=== PATIENT | female | born 1960 | race Caucasian/White ===

== ENCOUNTER 2016-05-27 09:58 | Inpatient (IN) | payer MEDICARE, MEDICAID ==
[~2016-05-27] VITALS: Ht 144.8 cm; Wt 60.0 kg
[~2016-05-27 09:58] MED LIST: ASPI325T4 PO; CALC-141 PO; CHOL20003 PO; ESOM40CA PO; EZET10TA3 PO; GABA100C8 PO; HYDR-3240 PO; LEVO100T5 PO; LISI-167 PO; LORA10TA62 PO; LURA20TA PO; LURA60TA PO; MECL-85 PO; MELO-184 PO; ONDA4TAB7 PO; OXCA300T3 PO; PIOG15TA4 PO; PRAV40TA2 PO; TRAZ150T68 PO; VITA1TAB19 PO
[2016-05-27] MEDS ORDERED: CYAN100074 PO (10:37)
[2016-05-27] MEDS ORDERED: ONDANSETRON ODT 4 MG ONE (11:26)
[2016-05-27] MEDS ORDERED: ONDANSETRON ODT 4 MG PO ONE (11:30)
[2016-05-27] MEDS ORDERED: DIAZEPAM 5 MG/ML, 2ML ONE (11:49)
[2016-05-27] MEDS ORDERED: MECLIZINE CHEWABLE 25 MG TAB ONE (11:50)
[2016-05-27] MEDS ORDERED: ONDANSETRON 2MG/ML, 2ML ONE (11:50)
[2016-05-27] MEDS ORDERED: SODIUM CHLORIDE 0.9% 1,000ML IVBOLUS ONE (12:00)
[2016-05-27] MEDS ORDERED: SODIUM CHLORIDE FLUSH 10ML SYR IVF ONE (12:00)
[2016-05-27] MEDS ORDERED: DIAZEPAM 5 MG/ML, 2ML IV ONE (12:00)
[2016-05-27] MEDS ORDERED: ONDANSETRON 2MG/ML, 2ML IVPush ONE (12:00)
[2016-05-27] MEDS ORDERED: MECLIZINE CHEWABLE 25 MG TAB PO ONE (12:00)
[2016-05-27 12:07] LABS: HEMOGLOBIN 14.1 g/dL (11.7-16.4)
[2016-05-27 12:21] LABS: BLOOD UREA NITROGEN 7 mg/dL (7-18)
[2016-05-27 12:24] LABS: ASPARTATE AMINO TRANSFERASE 22 U/L (15-37)
[2016-05-27] MEDS ORDERED: SODIUM CHLORIDE 0.9%, 500ML IVBOLUS ONE (13:00)
[2016-05-27] MEDS ORDERED: POLYETHYLENE GLYCOL 17 GM PACKET PO PRN (14:00)
[2016-05-27] MEDS ORDERED: ENALAPRILAT 1.25 MG/ML, 2ML IVPush PRN (14:00)
[2016-05-27] MEDS ORDERED: BISACODYL 10 MG SUPP PR PRN (14:00)
[2016-05-27] MEDS ORDERED: ACETAMINOPHEN 325 MG TABLET PO PRN (14:00)
[2016-05-27] MEDS ORDERED: DOCUSATE 100 MG CAPSULE PO PRN (14:00)
[2016-05-27] MEDS ORDERED: MORPHINE SULFATE 4 MG/ML, 1ML IVPush PRN (14:00)
[2016-05-27] MEDS ORDERED: MECLIZINE CHEWABLE 25 MG TAB PO PRN (14:30)
[2016-05-27] MEDS ORDERED: DIAZEPAM 5 MG/ML, 2ML IV PRN (14:30)
[2016-05-27] MEDS: INSULIN REGULAR 100 UNITS/ML, 3ML VIAL SQ-INSULIN SCH ×2 (16:00→21:00)
[2016-05-27 16:15] VITALS: BP 182/84
[2016-05-27] MEDS: LORATADINE 10 MG TABLET PO SCH (16:30)
[2016-05-27] MEDS ORDERED: ENOXAPARIN 40 MG/0.4 ML SQ SCH (17:00)
[2016-05-27] MEDS: HYDROcodone/APAP 5/325 TABLET PO PRN ×2 (17:31→22:47)
[2016-05-27 17:35] VITALS: BP 171/90
[2016-05-27] MEDS: ONDANSETRON 2MG/ML, 2ML IVP PRN (18:34)
[2016-05-27 19:28] VITALS: BP 159/92
[2016-05-27] MEDS: SODIUM CHLORIDE FLUSH 10ML SYR IVF SCH (21:00)
[2016-05-27] MEDS: GABAPENTIN 300 MG CAPSULE PO SCH (21:57)
[2016-05-28 02:53] VITALS: BP 147/90
[2016-05-28 05:28] LABS: HEMOGLOBIN 11.9 g/dL (11.7-16.4)
[2016-05-28] MEDS: HYDROcodone/APAP 5/325 TABLET PO PRN (05:38)
[2016-05-28 05:43] LABS: BLOOD UREA NITROGEN 6 mg/dL (7-18)
[2016-05-28] MEDS ORDERED: ASPIRIN 325 MG TABLET PO SCH (06:00)
[2016-05-28 06:35] VITALS: BP 119/79
[2016-05-28] MEDS: INSULIN REGULAR 100 UNITS/ML, 3ML VIAL SQ-INSULIN SCH ×2 (07:00→11:00)
[2016-05-28] MEDS ORDERED: OLANZAPINE 5 MG TABLET PO SCH (09:00)
[2016-05-28] MEDS ORDERED: PIOGLITAZONE 15 MG TABLET PO SCH (09:00)
[2016-05-28] MEDS ORDERED: CYANOCOBALAMIN 1,000 MCG TABLET PO SCH (09:00)
[2016-05-28] MEDS ORDERED: MELOXICAM 15 MG TABLET PO SCH (09:00)
[2016-05-28] MEDS ORDERED: PRAVASTATIN 40 MG TABLET PO SCH (09:00)
[2016-05-28] MEDS ORDERED: CHOLECALCIFEROL 1,000 UNIT TABLET PO SCH (09:00)
[2016-05-28] MEDS: SODIUM CHLORIDE FLUSH 10ML SYR IVF SCH (09:00)
[2016-05-28] MEDS ORDERED: LEVOTHYROXINE 100 MCG TABLET PO SCH (09:00)
[2016-05-28] MEDS ORDERED: CALCIUM/VITAMIN D3 250-125 TABLET PO SCH (09:00)
[2016-05-28] MEDS ORDERED: LISINOPRIL 10 MG TABLET PO SCH (09:00)
[2016-05-28] MEDS: LORATADINE 10 MG TABLET PO SCH (10:08)
[2016-05-28] MEDS: GABAPENTIN 300 MG CAPSULE PO SCH (10:09)
[2016-05-28] MEDS ORDERED: OLAN5TAB3 PO (10:39)
[2016-05-28] MEDS: ONDANSETRON 2MG/ML, 2ML IVP PRN (11:59)
[2016-05-28] MEDS ORDERED: DIAZ5TAB PO (13:10)
[2016-05-28] MEDS ORDERED: MECL-85 PO (13:10)
== END 2016-05-28 15:53 | disposition home or self-care (01) | DRG 641 ==
LOC: ED 12:16 → EDIP 13:12 → 4EST 15:57 → 3NE 17:15
PROVIDERS: ADMIT Internal Medicine; ATTEND Internal Medicine
DX: E87.1 Hypo-osmolality and hyponatremia (principal); I50.30 Unspecified diastolic (congestive) heart failure; R42 Dizziness and giddiness; D72.829 Elevated white blood cell count, unspecified; E11.65 Type 2 diabetes mellitus with hyperglycemia; E03.9 Hypothyroidism, unspecified; E55.9 Vitamin D deficiency, unspecified; M19.90 Unspecified osteoarthritis, unspecified site; E11.42 Type 2 diabetes mellitus with diabetic polyneuropathy; M54.9 Dorsalgia, unspecified; I11.0 Hypertensive heart disease with heart failure; E78.00 Pure hypercholesterolemia, unspecified; E78.5 Hyperlipidemia, unspecified; F17.200 Nicotine dependence, unspecified, uncomplicated; F31.9 Bipolar disorder, unspecified; G89.29 Other chronic pain; Z66 Do not resuscitate; Z79.84 Long term (current) use of oral hypoglycemic drugs; Z82.5 Family history of asthma and other chronic lower respiratory diseases; Z86.73 Personal history of transient ischemic attack (TIA), and cerebral infarction without residual deficits; Z86.59 Personal history of other mental and behavioral disorders; Z87.74 Personal history of (corrected) congenital malformations of heart and circulatory system; Z88.8 Allergy status to other drugs, medicaments and biological substances
CPT/HCPCS: 36415; 80048; 80053; 82607; 82962; 83036; 83605; 83690; 84439; 84443; 85025; 96374; 96375; J1650; J2405; J3360; Q0162; J7030

== ENCOUNTER 2016-07-19 19:21 | Emergency (ER) | payer MEDICARE, MEDICAID ==
[~2016-07-19] VITALS: Ht 147.3 cm; Wt 62.0 kg
[~2016-07-19 19:21] MED LIST changes: +CYAN100074 PO; +DIAZ5TAB PO; +OLAN5TAB3 PO
[2016-07-19 20:39] LABS: BLOOD UREA NITROGEN 26 mg/dL (7-18)
[2016-07-19 21:51] VITALS: BP 102/60
== END 2016-07-19 22:33 | disposition home or self-care (01) ==
LOC: ED 22:17
DX: S80.02XA Contusion of left knee, initial encounter (principal); S80.01XA Contusion of right knee, initial encounter; S00.93XA Contusion of unspecified part of head, initial encounter; S50.12XA Contusion of left forearm, initial encounter; W19.XXXA Unspecified fall, initial encounter; Y93.89 Activity, other specified; Y92.009 Unspecified place in unspecified non-institutional (private) residence as the place of occurrence of the external cause; Y99.9 Unspecified external cause status; E11.9 Type 2 diabetes mellitus without complications; I10 Essential (primary) hypertension; E78.00 Pure hypercholesterolemia, unspecified
CPT/HCPCS: 36415; 70450; 80048; 82040; 85025; 99285

== ENCOUNTER 2016-08-19 09:06 | Inpatient (IN) | payer MEDICARE, MEDICAID ==
[~2016-08-19] VITALS: Ht 144.8 cm; Wt 61.8 kg
[~2016-08-19 09:06] MED LIST changes: +CHOL2000 PO; -CHOL20003 PO; +GABA-826 PO; -GABA100C8 PO
[2016-08-19] MEDS ORDERED: LORazepam 2 MG/ML, 1ML ONE (09:55)
[2016-08-19] MEDS ORDERED: MECLIZINE CHEWABLE 25 MG TAB ONE (09:56)
[2016-08-19] MEDS ORDERED: ONDANSETRON 2MG/ML, 2ML ONE (09:56)
[2016-08-19] MEDS ORDERED: SODIUM CHLORIDE 0.9% 1,000ML IVBOLUS ONE (10:00)
[2016-08-19] MEDS ORDERED: ONDANSETRON 2MG/ML, 2ML IVPush ONE (10:00)
[2016-08-19] MEDS ORDERED: SODIUM CHLORIDE FLUSH 10ML SYR IVF ONE (10:00)
[2016-08-19] MEDS ORDERED: MECLIZINE CHEWABLE 25 MG TAB PO ONE (10:00)
[2016-08-19] MEDS ORDERED: LORazepam 2 MG/ML, 1ML IVPush ONE (10:00)
[2016-08-19 10:23] LABS: BLOOD UREA NITROGEN 12 mg/dL (7-18)
[2016-08-19] MEDS ORDERED: ACETAMINOPHEN 325 MG TABLET PO PRN (14:00)
[2016-08-19] MEDS ORDERED: POLYETHYLENE GLYCOL 17 GM PACKET PO PRN (14:00)
[2016-08-19] MEDS ORDERED: BISACODYL 10 MG SUPP PR PRN (14:00)
[2016-08-19] MEDS ORDERED: ONDANSETRON 2MG/ML, 2ML IVPush PRN (14:00)
[2016-08-19] MEDS ORDERED: ENOXAPARIN 40 MG/0.4 ML SQ SCH (14:00)
[2016-08-19] MEDS ORDERED: DOCUSATE 100 MG CAPSULE PO PRN (14:00)
[2016-08-19] MEDS ORDERED: HYDROcodone/APAP 5/325 TABLET PO PRN (14:00)
[2016-08-19] MEDS ORDERED: DIAZEPAM 5 MG TABLET PO PRN (14:00)
[2016-08-19 14:32] LABS: IS PT STATUS REG ER OR PRE ER? YES
[2016-08-19 15:05] VITALS: BP 181/93
[2016-08-19] MEDS: ENALAPRILAT 1.25 MG/ML, 2ML IVPush PRN ×2 (15:23→15:44)
[2016-08-19 15:39] VITALS: BP 183/92
[2016-08-19 16:05] VITALS: BP 183/98
[2016-08-19 16:08] VITALS: BP 179/109
[2016-08-19 16:11] VITALS: BP 188/93
[2016-08-19] MEDS: NS + 20MEQ KCL 1,000 ML IV SCH (16:48)
[2016-08-19 20:00] VITALS: BP_SYST 118; BP_SYST 122; BP_SYST 129; BP_DIAS 75; BP_DIAS 81; BP_DIAS 86
[2016-08-19 20:12] LABS: IS PT STATUS REG ER OR PRE ER? NO
[2016-08-20 00:35] VITALS: BP_SYST 119; BP_SYST 127; BP_SYST 130; BP_DIAS 76; BP_DIAS 81; BP_DIAS 84
[2016-08-20 02:42] VITALS: BP 133/80
[2016-08-20] MEDS: NS + 20MEQ KCL 1,000 ML IV SCH (03:26)
[2016-08-20] MEDS ORDERED: ASPIRIN 325 MG TABLET PO SCH (06:00)
[2016-08-20 06:17] LABS: BLOOD UREA NITROGEN 8 mg/dL (7-18)
[2016-08-20] MEDS ORDERED: OLANZAPINE 5 MG TABLET PO SCH (09:00)
[2016-08-20] MEDS ORDERED: CYANOCOBALAMIN 1,000 MCG TABLET PO SCH (09:00)
[2016-08-20] MEDS ORDERED: LISINOPRIL 20 MG TABLET PO SCH (09:00)
[2016-08-20] MEDS ORDERED: LEVOTHYROXINE 100 MCG TABLET PO SCH (09:00)
[2016-08-20] MEDS ORDERED: PRAVASTATIN 40 MG TABLET PO SCH (09:00)
[2016-08-20] MEDS ORDERED: CHOLECALCIFEROL 1,000 UNIT TABLET PO SCH (09:00)
[2016-08-20] MEDS ORDERED: CALCIUM/VITAMIN D3 250-125 TABLET PO SCH (09:00)
== END 2016-08-20 05:58 | disposition left against medical advice (07) | DRG 74 ==
LOC: ED 10:16 → EDIP 12:50 → 4WST 14:33
PROVIDERS: ADMIT Hospitalist; ATTEND Hospitalist
DX: G90.8 Other disorders of autonomic nervous system (principal); I50.32 Chronic diastolic (congestive) heart failure; E87.1 Hypo-osmolality and hyponatremia; W18.39XA Other fall on same level, initial encounter; E78.00 Pure hypercholesterolemia, unspecified; F31.9 Bipolar disorder, unspecified; M54.9 Dorsalgia, unspecified; G89.29 Other chronic pain; E07.9 Disorder of thyroid, unspecified; M19.90 Unspecified osteoarthritis, unspecified site; E55.9 Vitamin D deficiency, unspecified; E78.5 Hyperlipidemia, unspecified; E11.65 Type 2 diabetes mellitus with hyperglycemia; I11.0 Hypertensive heart disease with heart failure; I69.398 Other sequelae of cerebral infarction; Z90.49 Acquired absence of other specified parts of digestive tract; Y93.89 Activity, other specified; Y92.098 Other place in other non-institutional residence as the place of occurrence of the external cause; Y99.8 Other external cause status; Z88.4 Allergy status to anesthetic agent; Z88.8 Allergy status to other drugs, medicaments and biological substances; Z82.5 Family history of asthma and other chronic lower respiratory diseases
CPT/HCPCS: 36415; 70551; 80048; 81001; 82040; 82607; 82746; 84443; 84484; 85025; 87077; 87086; 87147; 93005; 93306; 93880; 96361; 96374; 96375; J1650; J2405; J3480; J2060; J7030

== ENCOUNTER 2016-09-27 20:54 | Inpatient (IN) | payer MEDICARE, MEDICAID ==
[~2016-09-27] VITALS: Ht 142.2 cm; Wt 67.9 kg
[2016-09-27] MEDS ORDERED: MECLIZINE CHEWABLE 25 MG TAB ONE (21:26)
[2016-09-27] MEDS ORDERED: ONDANSETRON 2MG/ML, 2ML ONE (21:27)
[2016-09-27] MEDS ORDERED: SODIUM CHLORIDE FLUSH 10ML SYR IVF ONE (21:30)
[2016-09-27] MEDS ORDERED: ONDANSETRON 2MG/ML, 2ML IVPush ONE (21:30)
[2016-09-27] MEDS ORDERED: SODIUM CHLORIDE 0.9% 1,000ML IVBOLUS ONE (21:30)
[2016-09-27] MEDS ORDERED: MECLIZINE CHEWABLE 25 MG TAB PO ONE (21:30)
[2016-09-27] MEDS ORDERED: DIAZEPAM 5 MG/ML, 2ML IVPush ONE (21:30)
[2016-09-27 21:45] LABS: HEMATOCRIT 38.3 % (34.6-47.8); HEMOGLOBIN 12.6 g/dL (11.7-16.4); WHITE BLOOD COUNT 8.2 x10^3/uL (3.4-10)
[2016-09-27 21:57] LABS: BLOOD UREA NITROGEN 11 mg/dL (7-18)
[2016-09-27] MEDS ORDERED: SODIUM CHLORIDE 0.9% 1,000 ML IV ONE (22:30)
[2016-09-27] MEDS ORDERED: MELO-184 PO (23:04)
[2016-09-27] MEDS ORDERED: MELATIN PO (23:04)
[2016-09-27] MEDS ORDERED: METO25TA35 PO (23:04)
[2016-09-27] MEDS ORDERED: GABA300C10 PO (23:04)
[2016-09-27] MEDS ORDERED: PANT40TA5 PO (23:04)
[2016-09-27] MEDS ORDERED: OXCA150T PO (23:04)
[2016-09-27] MEDS ORDERED: OLAN10TA9 PO (23:04)
[2016-09-27] MEDS ORDERED: NORCO (23:04)
[2016-09-27] MEDS ORDERED: LISI30TA4 PO (23:04)
[2016-09-27] MEDS ORDERED: LORA10TA3 PO (23:04)
[2016-09-28] VITALS (11 sets, daily range): BP systolic 126–172; BP diastolic 75–100
[2016-09-28] MEDS ORDERED: BISACODYL 10 MG SUPP PR PRN (00:30)
[2016-09-28] MEDS ORDERED: PROMETHAZINE 25 MG/ML, 1ML IM PRN (00:30)
[2016-09-28] MEDS: PANTOPRAZOLE MC SCH ×3 (00:30→16:30)
[2016-09-28] MEDS ORDERED: hydrALAzine 20 MG/ML, 1ML IVPush PRN (00:30)
[2016-09-28] MEDS ORDERED: LABETALOL 5MG/ML, 20ML IVPush PRN (00:30)
[2016-09-28] MEDS: OXCARBAZEPINE MC SCH ×3 (00:30→16:30)
[2016-09-28] MEDS ORDERED: DIAZEPAM 5 MG/ML, 2ML IV PRN (00:30)
[2016-09-28] MEDS ORDERED: ACETAMINOPHEN 325 MG TABLET PO PRN (00:30)
[2016-09-28] MEDS ORDERED: METOCLOPRAMIDE 5 MG/ML, 2ML IVPush PRN (00:30)
[2016-09-28] MEDS ORDERED: ZOLPIDEM 5MG TABLET PO PRN (00:30)
[2016-09-28] MEDS ORDERED: POLYETHYLENE GLYCOL 17 GM PACKET PO PRN (00:30)
[2016-09-28] MEDS ORDERED: DOCUSATE 100 MG CAPSULE PO PRN (00:30)
[2016-09-28] MEDS ORDERED: ONDANSETRON 2MG/ML, 2ML IVPush PRN (00:30)
[2016-09-28] MEDS ORDERED: HYDROcodone/APAP 5/325 TABLET PO PRN (00:30)
[2016-09-28] MEDS: SODIUM CHLORIDE 0.9% 1,000 ML IV SCH ×3 (01:14→17:21)
[2016-09-28] MEDS: MECLIZINE CHEWABLE 25 MG TAB PO SCH ×5 (01:14→22:36)
[2016-09-28] MEDS: NICOTINE 21 MG/24 HR PATCH.TD24 TD SCH (01:14)
[2016-09-28] MEDS: ENOXAPARIN 40 MG/0.4 ML SQ SCH (01:14)
[2016-09-28 02:26] LABS: POTASSIUM,URINE RANDOM 11 mmol/L
[2016-09-28 05:15] LABS: HEMATOCRIT 36.6 % (34.6-47.8); HEMOGLOBIN 12.1 g/dL (11.7-16.4); WHITE BLOOD COUNT 8.3 x10^3/uL (3.4-10)
[2016-09-28 05:28] LABS: ASPARTATE AMINO TRANSFERASE 13 U/L (15-37); BLOOD UREA NITROGEN 8 mg/dL (7-18)
[2016-09-28] MEDS: ASPIRIN 81 MG TABLET EC PO SCH (06:10)
[2016-09-28] MEDS ORDERED: OXCARBAZEPINE 150 MG TABLET PO SCH (09:00)
[2016-09-28] MEDS: OLANZAPINE 10 MG TABLET PO SCH (09:00)
[2016-09-28] MEDS: LORATADINE 10 MG TABLET PO SCH (09:15)
[2016-09-28] MEDS: METOPROLOL TARTRATE 25 MG TABLET PO SCH ×2 (09:15→22:36)
[2016-09-28] MEDS: GABAPENTIN 300 MG CAPSULE PO SCH ×2 (09:15→22:36)
[2016-09-28] MEDS: MELOXICAM 15 MG TABLET PO SCH (09:15)
[2016-09-28] MEDS: LISINOPRIL 10 MG TABLET PO SCH (09:16)
[2016-09-28] MEDS: LEVOTHYROXINE 100 MCG TABLET PO SCH (09:17)
[2016-09-28] MEDS: PANTOPROZOLE 40MG TABLET PO SCH ×2 (15:35→17:21)
[2016-09-28] MEDS: OXCARBAZEPINE 150 MG TABLET PO SCH (21:00)
[2016-09-29] MEDS: SODIUM CHLORIDE 0.9% 1,000 ML IV SCH ×2 (01:19→08:02)
[2016-09-29] MEDS: ENOXAPARIN 40 MG/0.4 ML SQ SCH (01:19)
[2016-09-29] MEDS: NICOTINE 21 MG/24 HR PATCH.TD24 TD SCH (01:19)
[2016-09-29 02:00] VITALS: BP 175/102
[2016-09-29 02:01] VITALS: BP 165/101
[2016-09-29 02:02] VITALS: BP 156/100
[2016-09-29] MEDS: ASPIRIN 81 MG TABLET EC PO SCH (05:46)
[2016-09-29] MEDS: MECLIZINE CHEWABLE 25 MG TAB PO SCH ×2 (05:50→09:29)
[2016-09-29 07:04] VITALS: BP 178/108
[2016-09-29 07:06] VITALS: BP 175/108
[2016-09-29 07:09] VITALS: BP 162/99
[2016-09-29] MEDS: OXCARBAZEPINE 150 MG TABLET PO SCH (09:00)
[2016-09-29] MEDS: GABAPENTIN 300 MG CAPSULE PO SCH (09:30)
[2016-09-29] MEDS: METOPROLOL TARTRATE 25 MG TABLET PO SCH (09:30)
[2016-09-29] MEDS: LISINOPRIL 10 MG TABLET PO SCH (09:30)
[2016-09-29] MEDS: LORATADINE 10 MG TABLET PO SCH (09:30)
[2016-09-29] MEDS: PANTOPROZOLE 40MG TABLET PO SCH (09:30)
[2016-09-29] MEDS: LEVOTHYROXINE 100 MCG TABLET PO SCH (09:37)
[2016-09-29] MEDS: MELOXICAM 15 MG TABLET PO SCH (09:37)
[2016-09-29] MEDS: OLANZAPINE 10 MG TABLET PO SCH (09:37)
[2016-09-29] MEDS ORDERED: MECL-85 PO (10:30)
== END 2016-09-29 10:56 | disposition home or self-care (01) | DRG 641 ==
LOC: ED 21:09 → EDIP 23:35 → 4WST 09-28 00:23
DX: E87.1 Hypo-osmolality and hyponatremia (principal); E44.0 Moderate protein-calorie malnutrition; I69.351 Hemiplegia and hemiparesis following cerebral infarction affecting right dominant side; R42 Dizziness and giddiness; E03.9 Hypothyroidism, unspecified; I11.9 Hypertensive heart disease without heart failure; E11.9 Type 2 diabetes mellitus without complications; E78.00 Pure hypercholesterolemia, unspecified; F17.200 Nicotine dependence, unspecified, uncomplicated; H91.90 Unspecified hearing loss, unspecified ear; Z87.74 Personal history of (corrected) congenital malformations of heart and circulatory system; Z68.33 Body mass index [BMI] 33.0-33.9, adult; Z90.49 Acquired absence of other specified parts of digestive tract; Z88.8 Allergy status to other drugs, medicaments and biological substances; Z88.4 Allergy status to anesthetic agent; Z88.3 Allergy status to other anti-infective agents; Z91.040 Latex allergy status
CPT/HCPCS: 36415; 80048; 80053; 81001; 82040; 82436; 82533; 83735; 83930; 83935; 84100; 84133; 84300; 84443; 85025; 87086; 87147; 93005; 96361; 96374; J1650; J2405; J3360; J7030

== ENCOUNTER 2019-08-11 17:16 | Emergency (ER) | payer MEDICARE, MEDICAID ==
[~2019-08-11] VITALS: Ht 142.2 cm; Wt 50.0 kg
[~2019-08-11 17:16] MED LIST changes: +ASPI325T17 PO; -ASPI325T4 PO; +BENZ1TAB61 PO; +BISA10SU54 PR; +CITA20TA6 PO; -EZET10TA3 PO; +EZET10TA70 PO; +GABA300C10 PO; +LISI30TA4 PO; +LORA-247 PO; +MELATIN PO; -MELO-184 PO; +MELO15TA24 PO; +METO25TA35 PO; +NORCO; +OLAN10TA9 PO; +OXCA150T18 PO; +PANT40TA5 PO; -PIOG15TA4 PO; +PIOG15TA69 PO; +POLY17PO5 PO; +RIVA1TAB PO; +RIVA20TA PO; +TRAZ150T62 PO; -TRAZ150T68 PO
[2019-08-11 17:19] VITALS: BP 107/64
--- NOTE | 2019-08-11 17:25 | NUR ---
BIANCA BARBA FROM HOME. PT DX WITH DVT RIGHT LEG TUESDAY, NEW RX FOR XARELTO. PT DC FROM [facility] ON TUESDAY. PT RIGHT LEG IS SWOLLEN AND HURTS TO WALK.
== END 2019-08-11 18:26 | disposition home or self-care (01) ==
LOC: ED 18:11
DX: I82.531 Chronic embolism and thrombosis of right popliteal vein (principal); I82.511 Chronic embolism and thrombosis of right femoral vein; I10 Essential (primary) hypertension; E11.9 Type 2 diabetes mellitus without complications; M19.90 Unspecified osteoarthritis, unspecified site; G89.29 Other chronic pain; E78.00 Pure hypercholesterolemia, unspecified; Z79.01 Long term (current) use of anticoagulants; Z90.49 Acquired absence of other specified parts of digestive tract; F17.200 Nicotine dependence, unspecified, uncomplicated
CPT/HCPCS: 99283